=== PATIENT | female | born 1985 | race Caucasian/White ===

== ENCOUNTER → 2020-04-03 15:32 | Outpatient (BNVA) | payer SELFPAY | PROVIDERS: Visit Provider Nurse Practitioner Family | DX: Z20.828 Contact with and (suspected) exposure to other viral communicable diseases (principal); J06.9 Acute upper respiratory infection, unspecified; R43.0 Anosmia | CPT/HCPCS: 87635 ==

== ENCOUNTER 2020-12-04 06:24 | Emergency (ER) | payer SELFPAY ==
[2020-12-04 06:36] VITALS: BP 130/73; PULSE 97; RESP 16; TEMP 36.8; O2SAT 96; BMI 24.5
--- NOTE | 2020-12-04 06:48 | ED_ITS ---
HPI - Dental/Oral General: Chief complaint: Dental/Oral Stated complaint: Swollen mouth, Pain on L side of face near mouth Time Seen by Provider: 12/04/20 06:31 History of Present Illness: HPI Narrative: 35-year-old female presents emergency room complaining of swelling left side of her face chest poor dentition actually has an appointment upcoming for a dentist but swelling last couple days has gotten markedly worse towards uncomfortable for her to chew or swallow. She has noted that foods and beverages that extreme temperatures cause discomfort. She denies any fever sweats or chills MD Complaint: tooth pain Teeth map: 1. Onset (ago): day(s) Duration: constant Severity: moderate Relieving factors: nothing Exacerbating factors: chewing, cold, heat, drinking fluids and swallowing Context: history of dental caries Associated symptoms: Reports gum swelling; Denies ear or mastoid pain, fever(s), odynophagia, sore throat or tongue swelling Treatment prior to arrival: none Review of Systems Const: Denies: fever(s) ENMT: Denies: odynophagia or ear or mastoid pain Card: Denies: chest pain, edema, dyspnea on exertion or orthopnea Resp: Denies: dyspnea, productive cough or non-productive cough GI: Denies: abdominal pain, nausea, vomiting, hematemesis, coffee ground emesis, diarrhea, constipation, bloating, hematochezia or melena : Denies: flank pain, difficulty voiding, dysuria, urinary frequency or urinary urgency Skin/Breast: Denies: rash or pruritus All/Imm: Denies: tongue swelling [facility] [place] [facility] Female Reproductive History: Date of last menstrual period: 11/05/20 Physical Exam Const: COMMON NORMALS: no acute distress GENERAL APPEARANCE: cooperative and comfortable ORIENTATION/CONSCIOUSNESS: Yes awake, Yes oriented to person, Yes oriented to place and Yes oriented to time HENMT: COMMON NORMALS: normocephalic, atraumatic, hearing grossly normal bilaterally, external ears normal, EAC's normal, TM's normal bilaterally, Normal nasal mucous membranes and turbinates present and moist oral mucous membranes HEAD & SCALP: normocephalic and atraumatic NOSE: Normal nasal mucous membranes and turbinates present EXTERNAL EAR: Yes external ears normal EXTERNAL AUDITORY CANAL: EAC's normal TYMPANIC MEMBRANE: TM's normal bilaterally OTHER: Poor dentition with multiple dental caries. Swelling along the gumline at the first molar. No abscess amenable to incision and drainage Neck/C-Spine: COMMON NORMALS: no JVD Resp: COMMON NORMALS: normal respiratory effort, No retractions, No use of accessory muscles and clear to auscultation bilaterally AUSCULTATION: clear to auscultation bilaterally Cardio: COMMON NORMALS: no JVD, regular rate, regular rhythm and No murmurs present (Cardio) RATE: regular rate RHYTHM: regular rhythm Neuro: SENSORIUM/ORIENTATION: Yes oriented to person, Yes oriented to place and Yes oriented to time Skin: COMMON NORMALS: no rashes or lesions noted GENERAL SKIN EXAM: no rashes or lesions noted Course 2 Vital Signs: Vital signs: Vital Signs Temperature 99.3 F 12/04/20 07:16 Pulse Rate 87 12/04/20 07:16 Respiratory Rate 18 12/04/20 07:16 Blood Pressure 130/73 12/04/20 07:16 Pulse Oximetry 97 12/04/20 07:16 MDM - Dental/Oral MDM Narrative: Medical decision making narrative: Started on clindamycin 300 mg 4 times daily x7 days recommend follow-up with dentist as soon as able for definitive care. patient is not currently on methadone. Discharge Plan Discharge Patient Disposition: Home Clinical Impression: Dental abscess Condition: Stable Prescriptions: New clindamycin HCl 300 mg capsule 300 mg PO Q6H 7 Days Qty: 28 RF: 0 Discharge Orders: Discharge ED (Routine); Ordered 12/04/20 Ordered By: Jorge Luis Zuniga Referrals: Eulogio Lyles DO [Primary Care Provider] - Discharge Diet: Usual diet Discharge Activity: Resume usual activity Patient Instructions: Opioid Safety Activity Restrictions/Additional Instructions: Follow-up with a dentist as soon as you are able. Coding Level of Care Code ED Machine Coremaker for Suha Bagley
[2020-12-04 06:59] VITALS: BP 130/73; PULSE 87; RESP 18; TEMP 37.4; O2SAT 97
[2020-12-04 07:16] VITALS: BP 130/73; PULSE 87; RESP 18; TEMP 37.4; O2SAT 97
== END 2020-12-04 07:13 | disposition home or self-care (01) ==
PROVIDERS: Emergency Provider Family Medicine; PCP Family Medicine
DX: K04.7 Periapical abscess without sinus (principal)
CPT/HCPCS: 99281

== ENCOUNTER → 2022-09-11 10:00 | Outpatient (BNVA) | payer OTHER, SELFPAY | PROVIDERS: PCP Family Medicine; Visit Provider Nurse Practitioner Women's Health | DX: N92.6 Irregular menstruation, unspecified (principal); Z32.00 Encounter for pregnancy test, result unknown; Z32.01 Encounter for pregnancy test, result positive | CPT/HCPCS: 81025; 83036; 84443; 84702 ==

== ENCOUNTER → 2022-09-18 13:45 | Outpatient (BNVA) | payer OTHER, SELFPAY | PROVIDERS: PCP Family Medicine; Visit Provider Nurse Practitioner Women's Health | DX: Z34.91 Encounter for supervision of normal pregnancy, unspecified, first trimester (principal); Z3A.01 Less than 8 weeks gestation of pregnancy | CPT/HCPCS: 76817 ==

== ENCOUNTER 2022-09-26 09:27 | Emergency (ER) | payer OTHER, SELFPAY ==
[2022-09-26 09:43] VITALS: BP 142/86; PULSE 105; RESP 18; TEMP 37.1; O2SAT 97; BMI 25.9
[2022-09-26 10:12] VITALS: BP 132/72; PULSE 97; RESP 19; O2SAT 98
--- NOTE | 2022-09-26 10:22 | ED_ITS ---
Documented by User: Wanda Helton PA-C 09/26/22 14:58 HPI - General: Chief complaint: Vaginal Bleeding Stated complaint: 7 weeks , vaginal bleeding Time Seen by Provider: 09/26/22 09:47 Source: patient Mode of arrival: ambulatory Limitations: no limitations History of Present Illness: 37-year-old female presents to the ER today for vaginal bleeding that began this morning. Patient reports there was no blood in the toilet or in her underwear but when she wiped there was a large amount of dark-colored blood. Patient reports according to LMP and original ultrasound she is 7 weeks 2 days today. She had an ultrasound done about a week and a half ago and everything looked good. Patient reports she did see an WALL C[facility]ING INSTALLER but did not have any lab work done at that time. Patient reports she is Rh- and has had to have RhoGAM with other pregnancies. Patient denies any cramping. Denies any recent illness. Denies any pain at this time. Patient reports she is . Her last 2 have been normal pregnancies however her first 1 was a missed miscarriage. 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 Carbajal for endometriosis --- self reported but told spots were treated Family History Mother Cervical cancer Hyperlipidemia Hypertension Sister Cervical cancer Grandmother Hyperlipidemia Hypertension maternal Diabetes maternal Stroke maternal Other Lung disease Denies family history of Colon cancer Ovarian cancer Breast cancer Uterine cancer Thyroid disease Physical Exam Const: COMMON NORMALS: no acute distress, average body habitus, patient oriented x3 and well nourished HENMT: COMMON NORMALS: normocephalic, atraumatic, external ears normal, Normal external nose present and moist oral mucous membranes HEAD & SCALP: normocephalic and atraumatic NOSE: Normal external nose present EXTERNAL EAR: Yes external ears normal Neck/C-Spine: COMMON NORMALS: full ROM Resp: COMMON NORMALS: normal respiratory effort, No retractions and clear to auscultation bilaterally AUSCULTATION: clear to auscultation bilaterally Cardio: COMMON NORMALS: regular rate, regular rhythm and No murmurs present (Cardio) RATE: regular rate RHYTHM: regular rhythm GI: COMMON NORMALS: Normal to inspection, nondistended, normoactive bowel sounds present, Soft to palpation and non-tender PALPATION: Yes Soft to palpation Extremity: COMMON NORMALS: normal to inspection and full ROM Neuro: COMMON NORMALS: patient oriented x3 and moves all extremities Psych: COMMON NORMALS: mental status grossly normal, Normal thought process present and cooperative THOUGHT PROCESS: Normal thought process present Skin: COMMON NORMALS: no rashes or lesions noted and no wounds GENERAL SKIN EXAM: no rashes or lesions noted Course ED course: Patient presents to the ER with vaginal bleeding at 7 weeks 2 days . This dark-colored blood began this morning when she wiped. Patient has no pain at this time. Denies any cramping. Patient is G4, P2. We will get lab work before deciding on ultrasound. Patient had an ultrasound done a week and a half ago. We will also get a urine to rule out UTI, patient prefers to not be catheterized but will give us a clean-catch sample. Patient is Rh- so we will do RhoGAM in ER. Vital Signs: Vital signs: Vital Signs Temperature 99.3 F 09/26/22 14:32 Pulse Rate 81 09/26/22 14:41 Respiratory Rate 16 09/26/22 14:41 Blood Pressure 123/80 09/26/22 14:41 Pulse Oximetry 96 09/26/22 14:41 Oxygen Delivery Me thod Room Air 09/26/22 14:41 MDM - OB/Uterine Contractions Medical Decision Making White count slightly elevated but expected in . Vaginal bleeding is minimal. Beta did rise from last visit a couple of weeks ago. Patient has no pain at this time. All other lab work unremarkable. UA does not indicate any blood. We went ahead and did an ultrasound and fetus is measuring 7 weeks 6 days which is appropriate based on estimated due date patient was given. There was noted to be a small subchorionic hemorrhage which may be the cause of bleeding. Discussed return precautions with patient. Recommended pelvic rest and pushing fluids. Follow-up with WALL COVERING INSTALLER in 1 week. Patient verbalized understanding and was in agreement with the treatment plan. Lab Data 09/26/22 11:23 09/26/22 11:23 Radiology Impressions Obstetrics Ultrasound 09/26/22 13:05 IMPRESSION: 1. Single intrauterine gestation of 7 weeks 6 days with an EDC of 05/09/2023. 2. Small subchorionic hemorrhage along the inferior gestational sac. 3. Normal cardiac activity. Laboratory Results WBC 11.8 10^3/uL (4.0-10.0) H 09/26/22 11: RBC 4.66 10^6/uL (4.1-5.3) 09/26/22 11:23 Hgb 14.2 g/dL (11.5-15.3) 09/26/22 11:23 Hct 42.9 % (37.0-47.0) 09/26/22 11:23 MCV 92.1 fl (81-99) 09/26/22 11:23 MCH 30.5 pg (28.0-34.0) 09/26/22 11:23 MCHC 33.1 g/dL (30.0-36.0) 09/26/22 11:23 RDW 12.5 % (12.1-15.1) 09/26/22 11:23 Plt Count 271 10^3/cmm (130-400) 09/26/22 11:23 MPV 8.9 fL (7.4-10.4) 09/26/22 11:23 Neut % (Auto) 71.7 % 09/26/22 11:23 Lymph % (Auto) 18.4 % 09/26/22 11:23 Clinch % (Auto) 8.4 % 09/26/22 11:23 Eos % (Auto) 0.5 % 09/26/22 11:23 Baso % (Auto) 0.5 % 09/26/22 11:23 Neut # (Auto) 8.45 10^3/uL (1.8-7.7) H 09/26/22 11:23 Lymph # (Auto) 2.2 10^3/uL (0.8-4.8) 09/26/22 11:23 Clinch # (Auto) 1.0 10^3/uL (0.2-0.9) H 09/26/22 11:23 Eos # (Auto) 0.1 10^3/uL (0.0-0.8) 09/26/22 11:23 Baso # (Auto) 0.1 10^3/uL (0.0-0.1) 09/26/22 11:23 Nucleated RBC % (auto) 0 % 09/26/22 11:23 Nucleated RBCs # 0.0 /100WBC 09/26/22 11:23 Sodium 136 mmol/L (136-145) 09/26/22 11:23 Potassium 3.5 mmol/L (3.5-5.1) 09/26/22 11:23 Chloride 102 mmol/L (98-107) 09/26/22 11:23 Carbon Dioxide 20 mmol/L (22-29) L 09/26/22 11:23 Anion Gap 17.5 (5-19) 09/26/22 11:23 BUN 5 mg/dL (6-20) L 09/26/22 11:23 Creatinine 0.6 mg/dL (0.5-0.9) 09/26/22 11:23 GFR Calculation 113.1 mL/min (90-130) 09/26/22 11:23 Glucose 86 mg/dL (65-115) 09/26/22 11:23 Calculated Osmolality 279 mOsm/kg (285-295) L 09/26/22 11:23 Calcium 9.3 mg/dL (8.5-10.5) 09/26/22 11:23 Ser , Semi-Qnt 32513.00 mIU/mL 09/26/22 11:23 Urine Color Yellow (Yellow) 09/26/22 11:05 Urine Appearance Clear (CLEAR) 09/26/22 11:05 Urine pH 5 (5-7) 09/26/22 11:05 Ur Specific [place] 1.015 (1.005-1.030) 09/26/22 11:05 Urine Protein Neg (Negative) 09/26/22 11:05 Urine Glucose (UA) Norm (Normal) 09/26/22 11:05 Urine Ketones Negative (Negative) 09/26/22 11:05 Urine Blood Neg (Negative) 09/26/22 11:05 Urine Nitrate Negative (Negative) 09/26/22 11:05 Urine Bilirubin Neg (Negative) 09/26/22 11:05 Urine Urobilinogen Norm mg/dL (Negative) 09/26/22 11:05 Ur Leukocyte Esterase Negative (Negative) 09/26/22 11:05 Blood Type AB Negative 09/26/22 11:23 Rho(D) Type Negative 09/26/22 11:23 Antibody Screen Negative 09/26/22 11:23 Critical Care Time Critical Care Time: Critical Care Time: No Discharge Plan Discharge Patient Disposition: Home Clinical Impression: Threatened Subchorionic hemorrhage in first trimester Qualifiers: Fetus number: single or unspecified fetus Qualified Code(s): O41.8X10 - Other specified disorders of amniotic fluid and membranes, first trimester, not applicable or unspecified Condition: Stable Prescriptions: No Action methadone 40 mg tablet,soluble 120 mg PO DAILY prenat.vits,cheyenne,[id number] Tablet 1 tab PO DAILY Qty: 90 3RF Discharge Orders: Discharge ED (Routine); Ordered 09/26/22 Ordered By: Wanda Helton Referrals: Eulogio Lyles DO [Primary Care Provider] - Discharge Diet: Usual diet Discharge Activity: Increase activity as tolerated Patient Instructions: Opioid Safety, Pain Management Activity Restrictions/Additional Instructions: Push fluids. Follow-up with WALL COVERING INSTALLER in 1 week. Return to the ER with any worsening pain or increased bleeding. Progress recommended x1 week. 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 Carbajal for endometriosis --- self reported but told spots were treated Family History Mother Cervical cancer Hyperlipidemia Hypertension Sister Cervical cancer Grandmother Hyperlipidemia Hypertension maternal Diabetes maternal Stroke maternal Other Lung disease Denies family history of Colon cancer Ovarian cancer Breast cancer Uterine cancer Thyroid disease Course Vital Signs: Vital signs: Vital Signs Temperature 99.3 F 09/26/22 14:32 Pulse Rate 81 09/26/22 14:41 Respiratory Rate 16 09/26/22 14:41 Blood Pressure 123/80 09/26/22 14:41 Pulse Oximetry 96 09/26/22 14:41 Oxygen Delivery Me thod Room Air 09/26/22 14:41 MDM - OB/Uterine Contractions Medical Decision Making White count slightly elevated but expected in . Vaginal bleeding is minimal. Beta did rise from last visit a couple of weeks ago. Patient has no pain at this time. All other lab work unremarkable. UA does not indicate any blood. We went ahead and did an ultrasound and fetus is measuring 7 weeks 6 days which is appropriate based on estimated due date patient was given. There was noted to be a small subchorionic hemorrhage which may be the cause of bleeding. Discussed return precautions with patient. Recommended pelvic rest and pushing fluids. Follow-up with WALL COVERING INSTALLER in 1 week. Patient verbalized understanding and was in agreement with the treatment plan. Chart reviewed and patient discussed with midlevel. Agree with assessment and plan. Lab Data 09/26/22 11:23 09/26/22 11:23 Radiology Impressions Obstetrics Ultrasound 09/26/22 13:05 IMPRESSION: 1. Single intrauterine gestation of 7 weeks 6 days with an EDC of 05/09/2023. 2. Small subchorionic hemorrhage along the inferior gestational sac. 3. Normal cardiac activity. Laboratory Results WBC 11.8 10^3/uL (4.0-10.0) H 09/26/22 11:23 RBC 4.66 10^6/uL (4.1-5.3) 09/26/22 11:23 Hgb 14.2 g/dL (11.5-15.3) 09/26/22 11:23 Hct 42.9 % (37.0-47.0) 09/26/22 11:23 MCV 92.1 fl (81-99) 09/26/22 11:23 MCH 30.5 pg (28.0-34.0) 09/26/22 11:23 MCHC 33.1 g/dL (30.0-36.0) 09/26/22 11:23 RDW 12.5 % (12.1-15.1) 09/26/22 11:23 Plt Count 271 10^3/cmm (130-400) 09/26/22 11:23 MPV 8.9 fL (7.4-10.4) 09/26/22 11:23 Neut % (Auto) 71.7 % 09/26/22 11:23 Lymph % (Auto) 18.4 % 09/26/22 11:23 Clinch % (Auto) 8.4 % 09/26/22 11:23 Eos % (Auto) 0.5 % 09/26/22 11:23 Baso % (Auto) 0.5 % 09/26/22 11:23 Neut # (Auto) 8.45 10^3/uL (1.8-7.7) H 09/26/22 11:23 Lymph # (Auto) 2.2 10^3/uL (0.8-4.8) 09/26/22 11:23 Clinch # (Auto) 1.0 10^3/uL (0.2-0.9) H 09/26/22 11:23 Eos # (Auto) 0.1 10^3/uL (0.0-0.8) 09/26/22 11:23 Baso # (Auto) 0.1 10^3/uL (0.0-0.1) 09/26/22 11:23 Nucleated RBC % (auto) 0 % 09/26/22 11:23 Nucleated RBCs # 0.0 /100WBC 09/26/22 11:23 Sodium 136 mmol/L (136-145) 09/26/22 11:23 Potassium 3.5 mmol/L (3.5-5.1) 09/26/22 11:23 Chloride 102 mmol/L (98-107) 09/26/22 11:23 Carbon Dioxide 20 mmol/L (22-29) L 09/26/22 11:23 Anion Gap 17.5 (5-19) 09/26/22 11:23 BUN 5 mg/dL (6-20) L 09/26/22 11:23 Creatinine 0.6 mg/dL (0.5-0.9) 09/26/22 11:23 GFR Calculation 113.1 mL/min (90-130) 09/26/22 11:23 Glucose 86 mg/dL (65-115) 09/26/22 11:23 Calculated Osmolality 279 mOsm/kg (285-295) L 09/26/22 11:23 Calcium 9.3 mg/dL (8.5-10.5) 09/26/22 11:23 Ser , Semi-Qnt 93598.00 mIU/mL 09/26/22 11:23 Urine Color Yellow (Yellow) 09/26/22 11:05 Urine Appearance Clear (CLEAR) 09/26/22 11:05 Urine pH 5 (5-7) 09/26/22 11:05 Ur Specific [place] 1.015 (1.005-1.030) 09/26/22 11:05 Urine Protein Neg (Negative) 09/26/22 11:05 Urine Glucose (UA) Norm (Normal) 09/26/22 11:05 Urine Ketones Negative (Negative) 09/26/22 11:05 Urine Blood Neg (Negative) 09/26/22 11:05 Urine Nitrate Negative (Negative) 09/26/22 11:05 Urine Bilirubin Neg (Negative) 09/26/22 11:05 Urine Urobilinogen Norm mg/dL (Negative) 09/26/22 11:05 Ur Leukocyte Esterase Negative (Negative) 09/26/22 11:05 Blood Type AB Negative 09/26/22 11:23 Rho(D) Type Negative 09/26/22 11:23 Antibody Screen Negative 09/26/22 11:23 Discharge Plan Discharge Patient Disposition: Home Clinical Impression: Threatened Subchorionic hemorrhage in first trimester Qualifiers: Fetus number: single or unspecified fetus Qualified Code(s): O41.8X10 - Other specified disorders of amniotic fluid and membranes, first trimester, not applicable or unspecified Condition: Stable Prescriptions: No Action methadone 40 mg tablet,soluble 120 mg PO DAILY prenat.vits,cheyenne,[id number] Tablet 1 tab PO DAILY Qty: 90 3RF Discharge Orders: Discharge ED (Routine); Ordered 09/26/22 Ordered By: Wanda Helton Referrals: Eulogio Lyles DO [Primary Care Provider] - Discharge Diet: Usual diet Discharge Activity: Increase activity as tolerated Patient Instructions: Opioid Safety, Pain Management Activity Restrictions/Additional Instructions: Push fluids. Follow-up with WALL COVERING INSTALLER in 1 week. Return to the ER with any worsening pain or increased bleeding. Progress recommended x1 week. Coding Level of Care Code ED Cotton Converter for Suha Bagley
[2022-09-26 11:37] LABS: Basophils # 0.1 10^3/uL (0.0-0.1); Basophils % 0.5 %; Eosinophils # 0.1 10^3/uL (0.0-0.8); Eosinophils % 0.5 %; Hematocrit 42.9 % (37.0-47.0); Hemoglobin 14.2 g/dL (11.5-15.3); Lymphocytes # 2.2 10^3/uL (0.8-4.8); Lymphocytes % 18.4 %; Mean Corpuscular HGB Conc 33.1 g/dL (30.0-36.0); Mean Corpuscular Hemoglobin 30.5 pg (28.0-34.0); Mean Corpuscular Volume 92.1 fl (81-99); Mean Platelet Volume 8.9 fL (7.4-10.4); Monocytes % 8.4 %; Neutrophils # 8.45 10^3/uL (1.8-7.7); Neutrophils % 71.7 %; Nucleated Red Blood Cells % 0 %; Platelet Count 271 10^3/cmm (130-400); Red Blood Count 4.66 10^6/uL (4.1-5.3); Red Cell Distribution Width 12.5 % (12.1-15.1); White Blood Count 11.8 10^3/uL (4.0-10.0)
[2022-09-26 12:15] LABS: Add Urine Microscopic? NO; Charge for UA Resulting for Rev
[2022-09-26 12:19] LABS: Bilirubin Urine Neg (Negative); Blood Urine Neg (Negative); Glucose Urine UA Norm (Normal); Ketones Urine Negative (Negative); Leukocyte Esterase Urine Negative (Negative); Nitrate Urine Negative (Negative); Protein Urine Neg (Negative); Specific Gravity, Urine 1.015 (1.005-1.030); Urine Appearance Clear (CLEAR); Urine Color Yellow (Yellow); Urobilinogen Urine Norm (Negative); pH Urine 5 (5-7)
[2022-09-26 12:33] LABS: Anion Gap 17.5 (5-19); Blood Urea Nitrogen 5 mg/dL (6-20); Calcium 9.3 mg/dL (8.5-10.5); Carbon Dioxide 20 mmol/L (22-29); Chloride 102 mmol/L (98-107); Glomerular Filtration Rate 113.1 mL/min (90-130); Glucose 86 mg/dL (65-115); Osmolality Calculated 279 mOsm/kg (285-295); Potassium 3.5 mmol/L (3.5-5.1); Sodium 136 mmol/L (136-145)
[2022-09-26 12:44] VITALS: BP 110/63; PULSE 72; RESP 18; O2SAT 98
--- NOTE | 2022-09-26 13:05 | US_ITS ---
WS: [id number] EARLY OBSTETRICAL ULTRASOUND (<14 WEEKS). HISTORY: vaginal bleeding 7w 2d COMPARISON: 09/18/2022 Single intrauterine gestational sac is identified. Cardiac activity at 144 BPM. [place]-rump length vanna sures 1.5 cm which corresponds to a gestation of 7w6d. Normal-appearing yolk sac and amnion demonstra elijah. Small subchorionic hemorrhage. Mildly hypoechoic area along the inferior gestational sac measur es 8 x 9 x 10 mm. Suspicious for subchorionic hemorrhage. No free fluid. Corpus luteal cyst LEFT ovary. US/US OB <=14 wk fetus w transvag IMPRESSION: 1. Single intrauterine gestation of 7 weeks 6 days with an EDC of 05/09/2023. 2. Small subchorionic hemorrhage along the inferior gestational sac. 3. Normal cardiac activity.
[2022-09-26 14:32] VITALS: PULSE 81; RESP 16; TEMP 37.4; O2SAT 97
[2022-09-26 14:41] VITALS: BP 123/80; PULSE 81; RESP 16; O2SAT 96
== END 2022-09-26 15:06 | disposition home or self-care (01) ==
PROVIDERS: Emergency Provider Physician Assistant; PCP Family Medicine
DX: O20.0 Threatened abortion (principal); O41.8X10 Other specified disorders of amniotic fluid and membranes, first trimester, not applicable or unspecified; Z3A.01 Less than 8 weeks gestation of pregnancy
CPT/HCPCS: 36415; 76801; 76817; 80048; 81003; 84702; 85025; 86850; 86900; 90384; 99284

== ENCOUNTER → 2022-10-16 09:00 | Outpatient (BNVA) | payer OTHER, SELFPAY | PROVIDERS: PCP Family Medicine; Visit Provider Obstetrics & Gynecology | DX: O09.899 Supervision of other high risk pregnancies, unspecified trimester (principal); Z3A.00 Weeks of gestation of pregnancy not specified | CPT/HCPCS: 80307; 84315; 85027; 86592; 86762; 86803; 87086; 87340; 87806 ==

== ENCOUNTER → 2022-12-17 12:57 | Outpatient (BNVA) | payer OTHER, SELFPAY | PROVIDERS: PCP Family Medicine; Visit Provider Obstetrics & Gynecology | DX: O09.899 Supervision of other high risk pregnancies, unspecified trimester (principal); Z3A.00 Weeks of gestation of pregnancy not specified | CPT/HCPCS: 84315; 87086 ==

== ENCOUNTER → 2022-12-29 09:09 | Outpatient (BNVA) | payer OTHER, SELFPAY | PROVIDERS: PCP Family Medicine; Visit Provider Obstetrics & Gynecology | DX: Z34.90 Encounter for supervision of normal pregnancy, unspecified, unspecified trimester (principal) | CPT/HCPCS: 76805 ==

== ENCOUNTER 2023-01-21 08:13 | Emergency (ER) | payer OTHER, SELFPAY ==
[2023-01-21 08:14] VITALS: BP 133/95; PULSE 94; RESP 16; TEMP 36.6; O2SAT 97
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
[2023-01-21 08:24] VITALS: BP 133/95; PULSE 97; RESP 18; O2SAT 97
[2023-01-21 08:27] VITALS: PULSE 100; RESP 15; O2SAT 98
== END 2023-01-21 08:30 | disposition home or self-care (01) ==
PROVIDERS: Emergency Provider Emergency Medicine; PCP Family Medicine
DX: O26.892 Other specified pregnancy related conditions, second trimester (principal); Z3A.24 24 weeks gestation of pregnancy; R10.9 Unspecified abdominal pain; V89.2XXA Person injured in unspecified motor-vehicle accident, traffic, initial encounter
CPT/HCPCS: 99282

== ENCOUNTER 2023-01-21 08:40 | Outpatient (CLI) | payer OTHER, SELFPAY ==
[2023-01-21] VITALS (20 sets, daily range): BP systolic 98–136; BP diastolic 56–80; PULSE 70–176; RESP 17; TEMP 35.9; BMI 28.1
[2023-01-21 09:41] LABS: Basophils # 0.1 10^3/uL (0.0-0.1); Basophils % 0.5 %; Eosinophils # 0.1 10^3/uL (0.0-0.8); Eosinophils % 0.8 %; Lymphocytes # 2.6 10^3/uL (0.8-4.8); Lymphocytes % 24.4 %; Mean Corpuscular HGB Conc 33.6 g/dL (30-55); Mean Corpuscular Hemoglobin 30.6 pg (27-33); Mean Corpuscular Volume 90.9 fl (85-98); Mean Platelet Volume 9.9 fL (7.4-10.4); Monocytes % 9.1 %; Neutrophils # 6.64 10^3/uL (1.8-7.7); Neutrophils % 62.9 %; Nucleated Red Blood Cells % 0 %; Platelet Count 253 10^3/cmm (157-399); Red Blood Count 3.96 10^6/uL (3.85-5.65); Red Cell Distribution Width 12.4 % (12.1-15.1); White Blood Count 10.54 10^3/uL (3.29-11.43)
[2023-01-21 10:07] LABS: Urine Appearance Hazy (CLEAR); Urine Color Dark Yellow (Yellow); pH Urine 5 (5-7)
[2023-01-21 10:08] LABS: Bilirubin Urine Neg (Negative); Blood Urine Neg (Negative); Glucose Urine UA Norm (Normal); Ketones Urine Negative (Negative); Leukocyte Esterase Urine Negative (Negative); Nitrate Urine Negative (Negative); Protein Urine Neg (Negative); Specific Gravity, Urine 1.025 (1.005-1.030); Urobilinogen Urine Norm (Negative)
[2023-01-21 10:12] LABS: Amphetamines Screen Urine Negative (Negative); Barbiturates Screen Urine Negative (Negative); Benzodiazepines Screen Urine Negative (Negative); Cocaine Screen Urine Negative (Negative); Opiate Screen Urine Negative (Negative); PCP Screen Urine Negative (Negative); THC Screen Urine Negative (Negative)
[2023-01-21 10:39] LABS: Add Urine Culture? No; Bacteria Urine TRACE /hpf; Mucus Urine TRACE /hpf; RBC Urine 0-4 /hpf (0-2); WBC Urine 0-4 /hpf (0-5)
--- NOTE | 2023-01-21 11:37 | PC.NURSE ---
Rhogam injection given IM in right ventrogluteal. Pt tolerated well
== END 2023-01-21 12:40 | disposition home or self-care (01) ==
LOC: OPOB 08:40 → OBGYN 08:41
PROVIDERS: PCP Family Medicine; Visit Provider Obstetrics & Gynecology
DX: O26.899 Other specified pregnancy related conditions, unspecified trimester (principal); Z3A.00 Weeks of gestation of pregnancy not specified; V89.2XXA Person injured in unspecified motor-vehicle accident, traffic, initial encounter
CPT/HCPCS: 36415; 36430; 59025; 80306; 81001; 85025; 85460; 86850; 86900; 90384; 99211

== ENCOUNTER → 2023-01-26 08:01 | Outpatient (BNVA) | payer OTHER, SELFPAY | PROVIDERS: PCP Family Medicine; Visit Provider Obstetrics & Gynecology | DX: Z36.87 Encounter for antenatal screening for uncertain dates (principal) | CPT/HCPCS: 76816 ==

== ENCOUNTER → 2023-02-18 09:42 | Outpatient (BNVA) | payer OTHER, SELFPAY | PROVIDERS: PCP Family Medicine; Visit Provider Obstetrics & Gynecology | DX: O09.899 Supervision of other high risk pregnancies, unspecified trimester (principal); Z3A.28 28 weeks gestation of pregnancy | CPT/HCPCS: 82950; 84315 ==

== ENCOUNTER 2023-02-26 07:17 | Outpatient (CLI) | payer OTHER, SELFPAY ==
[2023-02-26] VITALS (14 sets, daily range): BP systolic 102–139; BP diastolic 53–71; PULSE 67–88; RESP 17; TEMP 36.3; BMI 29.6
--- NOTE | 2023-02-26 07:48 | US_ITS ---
WS: [id number] ULTRASOUND OB FOCUSED HISTORY: cramping COMPARISON: 01/26/2023 Single intrauterine gestation is identified in vertex position. The cervix is closed measuring 3.8 cm . heart rate at 129 BPM. Placenta is anterior and grade 1. The appearance of the placenta is very similar to the prior examina tion from 01/26/2023. No abruption or previa. Normal aging. Amniotic fluid index is 11.2 cm. IMPRESSION: 1. Normal anterior placenta. No abruption or previa. 2. Normal amniotic fluid. 3. Normal MACARENA.
== END 2023-02-26 10:58 | disposition home or self-care (01) ==
LOC: OPOB 07:18 → OBGYN 07:18
PROVIDERS: PCP Family Medicine; Visit Provider Obstetrics & Gynecology
DX: O26.899 Other specified pregnancy related conditions, unspecified trimester (principal); Z3A.00 Weeks of gestation of pregnancy not specified; R10.9 Unspecified abdominal pain
CPT/HCPCS: 59025; 76815; 99211

== ENCOUNTER → 2023-03-04 10:15 | Outpatient (BNVA) | payer OTHER, SELFPAY | PROVIDERS: PCP Family Medicine; Visit Provider Obstetrics & Gynecology | DX: O09.899 Supervision of other high risk pregnancies, unspecified trimester (principal) | CPT/HCPCS: 84315; 85025 ==

== ENCOUNTER → 2023-04-01 09:33 | Outpatient (BNVA) | payer OTHER, SELFPAY | PROVIDERS: PCP Family Medicine; Visit Provider Nurse Practitioner Women's Health | DX: O09.899 Supervision of other high risk pregnancies, unspecified trimester (principal); F11.20 Opioid dependence, uncomplicated; Z3A.34 34 weeks gestation of pregnancy | CPT/HCPCS: 84315; 87086 ==

== ENCOUNTER → 2023-04-16 08:01 | Outpatient (BNVA) | payer OTHER, SELFPAY | PROVIDERS: PCP Family Medicine; Visit Provider Nurse Practitioner Women's Health | DX: O09.899 Supervision of other high risk pregnancies, unspecified trimester (principal); Z3A.36 36 weeks gestation of pregnancy | CPT/HCPCS: 84315; 87081; 87491; 87591 ==

== ENCOUNTER 2023-04-20 07:41 | Outpatient (CLI) | payer OTHER, SELFPAY ==
[2023-04-20 08:00] VITALS: BMI 30.5
[2023-04-20 08:04] VITALS: BP 125/72; PULSE 91
[2023-04-20 08:13] VITALS: RESP 15; TEMP 36.7
--- NOTE | 2023-04-20 09:00 | PM.OBTRLD ---
OB L&D Triage Visit Information: Date of evaluation: 04/20/23 Comments/Additional reason(s) for visit: 37-year-old at 37 weeks gestation with complaints of contractions onset early this a.m. She denies leakage of fluid or vaginal bleeding. Review of active labor in early labor with patient. Her cervix was checked last week at clinic and noted to be 3 to 4 cm. This morning her cervix is relatively unchanged at 3 cm / 75%/-2 vertex. Discussed with patient discharge to home and for her to return if contraction intensity increases, leakage of fluid or vaginal bleeding. Patient understands Evaluation: Baseline heart rate: 140 Variability: Moderate (11-25) monitor accelerations: Present 15x15 monitor decelerations: None Cervical dilation (cm): 3 Cervical effacement (%): 75 station: -2 Laboratory results: Laboratory Tests 04/20/23 08:30 Amorphous Sediment Not Reportable Vital signs: Vital Signs - 24 hr 04/20/23 08:04 Pulse Rate 91 Blood Pressure 125/72 Care SHIRA Calculator Estimated Delivery Date Method Current WG Current Estimate 05/12/23 Ultrasound #1 36w 6d Other Estimates 04/27/23 LMP (Certain) 39w 0d Expected Delivery Route/Plan Final Diagnosis Final Diagnosis (1) 37 weeks gestation of : Plan: Observation on EFM. Discharge to home, patient to return to labor and delivery if contraction intensity increases, leakage of fluid or vaginal bleeding. Status: Acute Code(s): Z3A.37 - 37 weeks gestation of (2) Rh negative status during : Status: Acute Qualifiers: Trimester: third trimester Qualified Code(s): O26.893 - Other specified related conditions, third trimester; Z67.91 - Unspecified blood type, Rh negative Code(s): O26.899 - Other specified related conditions, unspecified trimester; Z67.91 - Unspecified blood type, Rh negative (3) Consultation for female sterilization: Status: Acute Code(s): Z30.09 - Encounter for other general counseling and advice on contraception (4) Subchorionic hemorrhage in first trimester: Status: Acute Code(s): O41.8X10 - Other specified disorders of amniotic fluid and membranes, first trimester, not applicable or unspecified; O46.8X1 - Other antepartum hemorrhage, first trimester (5) Supervision of other high-risk : Status: Acute Code(s): O09.899 - Supervision of other high risk pregnancies, unspecified trimester (6) Irregular menses: Status: Acute Code(s): N92.6 - Irregular menstruation, unspecified (7) Opiate addiction: Status: Acute Qualifiers: Substance use status: uncomplicated Qualified Code(s): F11.20 - Opioid dependence, uncomplicated Code(s): F11.20 - Opioid dependence, uncomplicated (8) Panic attack due to post traumatic stress disorder (PTSD): Status: Acute Code(s): F41.0 - Panic disorder [episodic paroxysmal anxiety]; F43.10 - Post-traumatic stress disorder, unspecified (9) Anxiety with depression: Status: Acute Code(s): F41.8 - Other specified anxiety disorders (10) PTSD (post-traumatic stress disorder): Status: Acute Code(s): F43.10 - Post-traumatic stress disorder, unspecified Coding Level of Care Code Acute Code for Chg Fwd Diagnoses 37 weeks gestation of Z3A.37 Rh negative status during in third trimester O26.893; Z67.91 Trimester: third trimester Consultation for female sterilization Z30.09 Subchorionic hemorrhage in first trimester O41.8X10; O46.8X1 Supervision of other high-risk O09.899 Irregular menses N92.6 Uncomplicated opioid dependence F11.20 Substance use status: uncomplicated Panic attack due to post traumatic stress disorder (PTSD) F41.0; F43.10 Anxiety with depression F41.8 PTSD (post-traumatic stress disorder) F43.10
[2023-04-20 09:05] LABS: Amphetamines Screen Urine Negative (Negative); Barbiturates Screen Urine Negative (Negative); Benzodiazepines Screen Urine Negative (Negative); Cocaine Screen Urine Negative (Negative); Opiate Screen Urine Negative (Negative); PCP Screen Urine Negative (Negative); THC Screen Urine Negative (Negative)
[2023-04-20 09:10] LABS: Bacteria Urine 1+ /hpf; Bilirubin Urine Neg (Negative); Blood Urine Neg (Negative); Glucose Urine UA Norm (Normal); Ketones Urine Negative (Negative); Leukocyte Esterase Urine 2+ (Negative); Nitrate Urine Negative (Negative); Protein Urine Neg (Negative); RBC Urine 0-4 /hpf (0-2); Specific Gravity, Urine 1.005 (1.005-1.030); Squamous Epithelial Cell Urine 0-4 /hpf (0-5); Urine Appearance Clear (CLEAR); Urine Color Straw (Yellow); Urobilinogen Urine Norm (Negative); WBC Urine 0-4 /hpf (0-5); pH Urine 7 (5-7)
== END 2023-04-20 09:10 | disposition home or self-care (01) ==
LOC: OPOB 07:55 → OBGYN 07:56
PROVIDERS: PCP Family Medicine; Visit Provider Obstetrics & Gynecology
DX: O26.893 Other specified pregnancy related conditions, third trimester (principal); Z3A.37 37 weeks gestation of pregnancy; Z67.91 Unspecified blood type, Rh negative; Z30.09 Encounter for other general counseling and advice on contraception; F11.20 Opioid dependence, uncomplicated; F41.0 Panic disorder [episodic paroxysmal anxiety]; F43.10 Post-traumatic stress disorder, unspecified; F41.8 Other specified anxiety disorders
CPT/HCPCS: 59025; 80306; 81001; 99211

== ENCOUNTER 2023-04-29 09:42 | Outpatient (CLI) | payer OTHER, SELFPAY ==
[2023-04-29 09:42] VITALS: BP 130/73; PULSE 98; BMI 30.5
[2023-04-29 10:08] VITALS: BP 121/65; PULSE 92
[2023-04-29 10:23] VITALS: BP 119/64; PULSE 87
[2023-04-29 10:30] VITALS: BP 119/64; PULSE 87; RESP 16; TEMP 36.7
== END 2023-04-29 10:35 | disposition home or self-care (01) ==
LOC: OPOB 09:44 → OBGYN 09:54
PROVIDERS: PCP Family Medicine; Visit Provider Obstetrics & Gynecology
DX: O16.9 Unspecified maternal hypertension, unspecified trimester (principal); Z3A.00 Weeks of gestation of pregnancy not specified
CPT/HCPCS: 59025; 84315; 99211

== ENCOUNTER 2023-05-03 14:10 | Inpatient (IN) | payer OTHER, SELFPAY ==
[2023-05-03] VITALS (75 sets, daily range): BP systolic 101–187; BP diastolic 53–84; PULSE 67–127; RESP 15–16; TEMP 36.4–37.1; O2SAT 91–100; BMI 30.5
[2023-05-03] MEDS: lactated ringers 1,000 ML 999 ML IV (14:04)
[2023-05-03 14:14] LABS: Basophils # 0.1 10^3/uL (0.0-0.1); Basophils % 0.5 %; Eosinophils # 0.1 10^3/uL (0.0-0.8); Eosinophils % 1.2 %; Hematocrit 30.8 % (36-47); Lymphocytes # 1.7 10^3/uL (0.8-4.8); Lymphocytes % 15.9 %; Mean Corpuscular HGB Conc 30.2 g/dL (30-55); Mean Corpuscular Hemoglobin 22.7 pg (27-33); Mean Corpuscular Volume 75.3 fl (85-98); Mean Platelet Volume 9.2 fL (7.4-10.4); Monocytes # 0.9 10^3/uL (0.2-0.9); Monocytes % 8.1 %; Neutrophils # 7.83 10^3/uL (1.8-7.7); Neutrophils % 73.4 %; Nucleated Red Blood Cells % 0.3 %; Platelet Count 241 10^3/cmm (157-399); Red Blood Count 4.09 10^6/uL (3.85-5.65); Red Cell Distribution Width 16.8 % (12.1-15.1); White Blood Count 10.68 10^3/uL (3.29-11.43)
--- NOTE | 2023-05-03 14:50 | ANES.PREANE2 ---
Pre-Anesthetic Assessment Height/Weight: Height 1.57 m Pulse BP 99 145/68 05/03/23 14:46 05/03/23 14:46 Epidural Familial anesthetic complications: None Was Beta Terry taken within 24 hours: N/A Was Clonidine taken within 24 hours: N/A Last Intake: 12:00 Social No alcohol and No tobacco (Quit 2 months ago) Exam alert, oriented x 3, clear to auscultation bilaterally and regular rate & rhythm Airway Submandibular: within normal limits Cervical ROM: within normal limits Mallampati: Class III Dentition: chipped Comments: Comments: Several missing, very poor dentition History/ROS No significant history except as noted and No significant complaints Pulmonary None reported CV/HEM None reported None reported Hepatic None reported GI Gastroesophageal Reflux Disease Metabolic None reported Musc/skel None reported Neuropsych Anxiety and Depression Panic attacks Anesthetic Plan ASA status: 3 Anesthesia: Anesthesia Evaluation, General and Regional (specify below) (Epidural) Medications/Allergies Home Medications Medication Instructions Recorded Confirmed Last Taken Type methadone 40 mg soluble tablet 120 mg PO DAILY 09/11/22 04/29/23 Unknown History prenat.vits,cheyenne,rxv-cygl-fvxpj 1 tab PO DAILY #90 tabs 09/11/22 04/29/23 Unknown Rx ondansetron HCl 4 mg tablet 4 mg PO Q6H PRN nausea and 10/16/22 04/29/23 Unknown Rx vomiting #30 tabs nitrofurantoin 100 mg PO BID #14 caps 12/17/22 04/29/23 Unknown Rx monohydrate/macrocrystals 100 mg capsule (Macrobid) famotidine 40 mg tablet (Pepcid) 40 mg PO BID #60 tabs 02/18/23 04/29/23 Unknown Rx sljzjusynktav-KW-haqqvjpkxwn 5 10 ml PO Q4H PRN cold symptoms 03/04/23 04/29/23 Unknown Rx mg-10 mg-100 mg/5 mL oral liquid #237 mL (Adult Robitussin Peak Cold M-S) azithromycin 250 mg tablet See Rx Instructions PO .COMPLEX #6 04/21/23 04/29/23 Unknown Rx tabs clotrimazole 1 % vaginal cream 1 appful vaginal .at bedtime 7 04/21/23 04/29/23 Unknown Rx days #45 grams Allergies Allergy/AdvReac Type Severity Reaction Status Date / Time cefaclor [From [facility]] Allergy unknown Verified 04/29/23 08:53 Penicillins Allergy unknown Verified 04/29/23 08:53 Sulfa (Sulfonamide Allergy unknown Verified 04/29/23 08:53 Antibiotics) prochlorperazine AdvReac Intermediate ADR-Anxiety Verified 04/29/23 08:53 [From Compazine] Current Medications Generic Name Dose Route Start Last Admin Trade Name Freq PRN Reason Stop Dose Admin Lactated Ringer's 1,000 mls @ 999 mls/hr 05/03/23 13:48 05/03/23 14:04 Lactated Ringers IV 999 mls/hr .Q1H1M PRN Administration BLEEDING PFSH Anesthesia Medical History Panic attack due to post traumatic stress disorder (PTSD) Anxiety with depression PTSD (post-traumatic stress disorder) History of gestational diabetes (~2010) diet controlled No pertinent past medical history neghx: htn,dm,thyroid,dvt/pe PCP: None Surgical History H/O laparoscopy (~2006) Performed by Dr. Carbajal for endometriosis --- self reported but told spots were treated H/O dilation and curettage (~2008) missed AB Family History Mother Cervical cancer Hyperlipidemia Hypertension Sister Cervical cancer Grandmother Hyperlipidemia Hypertension maternal Diabetes maternal Stroke maternal Other Lung disease Denies family history of Colon cancer Ovarian cancer Breast cancer Uterine cancer Thyroid disease Data Anesthesia 05/04/23 06:37 Short CBC 05/03/23 Range/Units 13:40 WBC 10.68 (3.29-11.43) 10^3/uL Hgb 9.30 L (11.27-16.99) g/dL Hct 30.8 L (36-47) % MCV 75.3 L (85-98) fl Plt Count 241 (157-399) 10^3/cmm Neut % (Auto) 73.4 % Neut # (Auto) 7.83 H (1.8-7.7) 10^3/uL Blood Bank 05/03/23 13:40 Blood Type AB Negative Rho(D) Type Negative Cardiac Studies: No Data to Display
[2023-05-03] MEDS: dextrose 5%-lactated ringers 1,000 ML 125 ML IV ×2 (15:06→17:15)
[2023-05-03] MEDS: ROPivacaine syringe 100 MG/50 ML SYRINGE 10 MG EPIDURAL ×2 (15:08→17:18)
--- NOTE | 2023-05-03 15:43 | ANES.PROC ---
Documented by User: Avni Troy, FINISHED STOCK INSPECTOR 05/03/23 18:31 Anesthesia Procedures Procedure/Date: 05/03/23 Epidural: Time Out Performed: Yes Consents Signed: Procedure Consent and NPO Consent Consent: requested by attending/covering physician, from patient, risks and benefits reviewed and patient agrees to proceed Lumbar Level: L2-L3 Epidural position: sitting Epidural procedure: sterile prep of area (betadine), 1% lidocaine to numb the area (3 mLs), neg for paresthesia, test dose given, 1.5% xylocaine 1:200k epi (3 mLs/ 2 mLs), 0.2% Ropivacaine bolus ml (5 mLs), placed PCEA, no systemic response, sterile dressing applied, L.U.D. no apparent complications and 0.2% Ropiavacaine @ mls/hr (13) Additional Comments: Attempt x2. Placed first epidural catheter and blood was seen coming back through catheter. Moved up one space and placed epidural. WINTER at 7cm and catheter placed to 12cm. 20mcg precedex given via epidural. Other Information: Called at 1800 for patients complaints of pain. Assessed patient and administered 100mcg fentanyl and 5ml 0.25% bupivacaine via slow epidural push after aspiration. Patient delivered shortly after administration. Documented by User: Pito Kohli 05/04/23 10:36 Anesthesia Procedures Procedure/Date: 05/04/23
--- NOTE | 2023-05-03 16:27 | PM.OBGYHP ---
Providers/Chief Complaint Admitting Physician: Elizabeth Frey DO Primary COOK HOUSE SUPERVISOR: Dr. Jose Alfredo Acosta Primary Care Provider: Eulogio Lyles DO Chief Complaint: labor HPI COOK HOUSE SUPERVISOR History of Present Illness Maira Mena is a 37 year old female G3, P2 at 39.1 weeks gestation admitted to labor and delivery with complaints of onset of contractions at 12:50 PM with leakage of fluid. Patient missed good movement and moderate contractions. Patient denies complications during this . care has been provided by Dr. Jose Alfredo Acosta. record has been reviewed with significant past medical history of panic attacks and opiate dependency. Patient currently takes methadone 120 mg daily. Upon admission patient cervix was noted to be 4 cm / 90%/-2 vertex presentation with gross clear fluid noted. EFM?category 1. Upon my examination patient cervix was 8 cm / 90%/-1 vertex presentation with decreased variability followed by audible change in baseline. Patient had just received epidural for pain management. Changing position to left lateral recumbency with return of HST's to previous baseline with moderate variability. Patient was aure every 5 to 6 minutes. Reviewed with patient once good recovery have occurred we will recheck cervix and if unchanged will consider augmentation. Patient understands and agrees. Risk of possible delivery if nonreassuring monitoring indicates need for expedient delivery. Present Details : 3 Para: 2 Labs Rubella: Immune RPR: Negative GBS: Negative Review of Systems Const: Reports: fatigue; Denies: fever(s) or change in appetite Eyes: Denies: change in vision, blurry vision, blind spots, floaters or seeing flashes Card: Denies: palpitations, irregular heart rhythm, edema, lightheadedness, syncope or pre-syncope Resp: Denies: dyspnea or pain on inspiration GI: Denies: abdominal pain, nausea, vomiting, heartburn or GI cramping : Reports: other (contractions (intermittent)); Denies: difficulty voiding, dysuria, genital pruritis, vaginal odor, vaginal bleeding or vaginal discharge Musc: Denies: back pain, limited range of motion or muscle cramps Skin/Breast: Denies: rash, pruritus, breast tenderness or nipple discharge Neuro: Denies: headache(s) or numbness in extremities Psych: Denies: anxiety, depression, mood swings or panic attacks Endo: Denies: polyuria, tired all the time or hot flashes [place]/Lymph: Denies: easy bruising or petechiae Medications/Allergies Home Medications Medication Instructions Recorded Confirmed Last Taken Type methadone 40 mg soluble tablet 120 mg PO DAILY 09/11/22 04/29/23 Unknown History prenat.vits,cheyenne,fuu-hncc-ckdnl 1 tab PO DAILY #90 tabs 09/11/22 04/29/23 Unknown Rx ondansetron HCl 4 mg tablet 4 mg PO Q6H PRN nausea and 10/16/22 04/29/23 Unknown Rx vomiting #30 tabs nitrofurantoin 100 mg PO BID #14 caps 12/17/22 04/29/23 Unknown Rx monohydrate/macrocrystals 100 mg capsule (Macrobid) famotidine 40 mg tablet (Pepcid) 40 mg PO BID #60 tabs 02/18/23 04/29/23 Unknown Rx pkaljtfhimgvt-UY-cilhwapqexb 5 10 ml PO Q4H PRN cold symptoms 03/04/23 04/29/23 Unknown Rx mg-10 mg-100 mg/5 mL oral liquid #237 mL (Adult Robitussin Peak Cold M-S) azithromycin 250 mg tablet See Rx Instructions PO .COMPLEX #6 04/21/23 04/29/23 Unknown Rx tabs clotrimazole 1 % vaginal cream 1 appful vaginal .at bedtime 7 04/21/23 04/29/23 Unknown Rx days #45 grams Allergies Allergy/AdvReac Type Severity Reaction Status Date / Time cefaclor [From Ceclor] Allergy unknown Verified 04/29/23 08:53 Penicillins Allergy unknown Verified 04/29/23 08:53 Sulfa (Sulfonamide Allergy unknown Verified 04/29/23 08:53 Antibiotics) prochlorperazine AdvReac Intermediate ADR-Anxiety Verified 04/29/23 08:53 [From Compazine] PFSH COOK HOUSE SUPERVISOR PFSH: Medical History Panic attack due to post traumatic stress disorder (PTSD) Anxiety with depression PTSD (post-traumatic stress disorder) History of gestational diabetes (~2010) diet controlled No pertinent past medical history neghx: htn,dm,thyroid,dvt/pe PCP: None Surgical History H/O laparoscopy (~2006) Performed by Dr. Carbajal for endometriosis --- self reported but told spots were treated H/O dilation and curettage (~2008) missed AB Family History Mother Cervical cancer Hyperlipidemia Hypertension Sister Cervical cancer Grandmother Hyperlipidemia Hypertension maternal Diabetes maternal Stroke maternal Other Lung disease Denies family history of Colon cancer Ovarian cancer Breast cancer Uterine cancer Thyroid disease Sexual History: Are you sexually active?: Yes How old were you when you first had sex?: 19 More than 5 How long have you been with your current partner?: Since 2007 What is your sexual preference?: Heterosexual Hx Sexually Transmitted Diseases: No History History History 4 Term 2 0 Miscarriages/Ectopic 1 Living Children 2 Care SHIRA Calculator Estimated Delivery Date Method Current WG Current Estimate 05/12/23 Ultrasound #1 38w 5d Other Estimates 04/27/23 LMP (Certain) 40w 6d Expected Delivery Route/Plan Vitals/I&O/Wt Last Vital Signs Pulse 102 H 05/03/23 16:25 Resp 15 05/03/23 13:49 BP 148/71 05/03/23 16:25 Pulse Ox 100 05/03/23 15:24 Weight last 48 hrs Weight 75.75 kg Physical Exam Narrative: 37-year-old female Const: COMMON NORMALS: no acute distress, patient oriented x3, no limitations, healthy appearing and well nourished HENMT: COMMON NORMALS: normocephalic OTHER: Poor dentition. Resp: COMMON NORMALS: clear to auscultation bilaterally Cardio: COMMON NORMALS: regular rate and regular rhythm Back/Pelvis: OTHER: Pelvic exam as above Extremity: COMMON NORMALS: normal to inspection, no clubbing, cyanosis or edema and no calf tenderness Neuro: COMMON NORMALS: patient oriented x3, CN's II-XII intact bilaterally, moves all extremities and deep tendon reflexes 2+ bilaterally Data 05/03/23 13:40 Results Labs OB ([facility]): Obstetrics US 02/26/23 Blood Type AB Negative 05/03/23 Antibody Screen Negative 05/03/23 Hct 30.8 % (36-47) L 05/03/23 Hgb 9.30 g/dL (11.27-16.99) L 05/03/23 Rho(D) Type Negative 05/03/23 Plt Count 241 10^3/cmm (157-399) 05/03/23 Hep Bs Antigen Non-reactive (Nonreactive) 10/16/22 Hepatitis C Antibody Non-reactive (Nonreactive) 10/16/22 Rubella IgG Antibody 32.0 IU/mL (0.0-10.0) H 10/16/22 RPR Nonreactive (Nonreactive) 10/16/22 HIV 1&2 Ab & HIV 1 Ag Non-reactive (Non-Reactiv) 10/16/22 TSH 1.37 uIU/mL (0.27-4.20) 09/11/22 C.trachomatis RNA (TMA) Not detected (NOT DETECTED) 04/16/23 N.gonorrhoeae RNA (TMA) Not detected (NOT DETECTED) 04/16/23 Chlamydia/GC Comment See note 04/16/23 Cystic Fibrosis Screen Negative 10/16/22 Glucose 1 Hr 50 gm 96 mg/dL (85-140) 02/18/23 Gest Glucose Tolerance 96 mg/dL (70-139) 02/18/23 Hemoglobin A1c 5.4 % (4.0-6.0) 09/11/22 Ser , Semi-Qnt 02472.00 mIU/mL 09/26/22 HCG, Qual Positive (Negative) H 09/11/22 Urine Opiates Screen Negative ng/mL (Negative) 04/20/23 Ur Barbiturates Screen Negative ng/mL (Negative) 04/20/23 Ur Phencyclidine Scrn Negative ng/mL (Negative) 04/20/23 Ur Amphetamines Screen Negative ng/mL (Negative) 04/20/23 U Benzodiazepines Scrn Negative ng/mL (Negative) 04/20/23 Urine Cocaine Screen Negative ng/mL (Negative) 04/20/23 U Marijuana (THC) Screen Negative ng/mL (Negative) 04/20/23 Micro Urine Specimen 04/01/23 A&P Assessment and plan (1) 39 weeks gestation of : GBS negative (2) Spontaneous rupture of membranes: (3) Active labor at term: (4) Rh negative status during : Qualifiers: Trimester: third trimester Qualified Code(s): O26.893 - Other specified related conditions, third trimester; Z67.91 - Unspecified blood type, Rh negative (5) Supervision of other high-risk : (6) Opiate addiction: Qualifiers: Substance use status: uncomplicated Qualified Code(s): F11.20 - Opioid dependence, uncomplicated (7) Panic attack due to post traumatic stress disorder (PTSD): (8) Anxiety with depression: (9) PTSD (post-traumatic stress disorder): Plan Admitted to labor and delivery for management of labor. Attestations Medical Necessity Statement*: 37-year-old G4, P2 admitted to labor and delivery for management of labor at 39 weeks gestation with spontaneous rupture membranes. Coding Level of Care Code Acute Code for Chg Fwd Diagnoses 39 weeks gestation of Z3A.39 Spontaneous rupture of membranes Active labor at term Rh negative status during in third trimester O26.893; Z67.91 Trimester: third trimester Supervision of other high-risk O09.899 Uncomplicated opioid dependence F11.20 Substance use status: uncomplicated Panic attack due to post traumatic stress disorder (PTSD) F41.0; F43.10 Anxiety with depression F41.8 PTSD (post-traumatic stress disorder) F43.10
[2023-05-03 17:29] LABS: Amphetamines Screen Urine Negative (Negative); Barbiturates Screen Urine Negative (Negative); Benzodiazepines Screen Urine Negative (Negative); Cocaine Screen Urine Negative (Negative); Opiate Screen Urine Negative (Negative); PCP Screen Urine Negative (Negative); THC Screen Urine Negative (Negative)
[2023-05-03] MEDS: oxytocin 30 UNIT/500 ML BAG IV (18:06)
[2023-05-03] MEDS: ondansetron 2 mg/ML SDV 2 mL 4 MG IVP (18:07)
--- NOTE | 2023-05-03 18:44 | P.PCNOB_ITS ---
Delivery Note: Date of delivery: May 03, 2023 Pre-delivery diagnoses: 39 weeks gestation Spontaneous rupture membranes Post-delivery diagnoses: S/p viable female Procedure: with Pitocin augmentation Op report anesthesia: Epidural Delivering Physician: Elizabeth Frey DO Estimated blood loss (mL): 300 Findings: Viable female Apgars 9/9 weight 7 pounds 5 Post Delivery Diagnoses: Rh negative status during : Qualifiers: Trimester: third trimester Qualified Code(s): O26.893 - Other specified related conditions, third trimester; Z67.91 - Unspecified blood type, Rh negative Delivery: 37-year-old G4, P3 delivered via a v iable baby girl from OA presentation. The anterior followed by the posterior shoulders delivered with the remainder of the baby's body to follow. The oral and nasal pathways were bulb suctioned with a spontaneous robust cry. With delaying of clamping the cord, the cord was clamped x 2 and cut. The baby was then placed on mother's abdomen for bonding and evaluation by nursing staff. Three-vessel cord was noted. The uterus was massaged and Pitocin IV solution given in a bolus manner. The placenta presented in a Hawth[place] presentation with trailing membranes. The uterus firmed well with minimal bleeding. The uterus and vaginal vault were explored a second-degree laceration noted and repaired with 2-0 Vicryl. Good hemostasis and approximation achieved. Mother and are both in stable and satisfactory condition. Post-Delivery Status: Stable History History History 4 Term 2 0 Miscarriages/Ectopic 1 Living Children 2 A&P Assessment and plan (1) 39 weeks gestation of : (2) Status post vaginal delivery: (3) Active labor at term: (4) Spontaneous rupture of membranes: (5) Rh negative status during : Qualifiers: Trimester: third trimester Qualified Code(s): O26.893 - Other specified related conditions, third trimester; Z67.91 - Unspecified blood type, Rh negative (6) Supervision of other high-risk : (7) Panic attack due to post traumatic stress disorder (PTSD): (8) Anxiety with depression: (9) PTSD (post-traumatic stress disorder): Plan A. S/p Consultation for tubal sterilization Rh- blood type P. Begin care and resume home meds of methadone 120 mg daily Coding Level of Care Code Acute Code for Chg Fwd Diagnoses 39 weeks gestation of Z3A.39 Status post vaginal delivery Active labor at term Spontaneous rupture of membranes Rh negative status during in third trimester O26.893; Z67.91 Trimester: third trimester Supervision of other high-risk O09.899 Panic attack due to post traumatic stress disorder (PTSD) F41.0; F43.10 Anxiety with depression F41.8 PTSD (post-traumatic stress disorder) F43.10
[2023-05-03] MEDS: lanolin oint 7 gm 1 APPLIC TOPICAL (21:08)
[2023-05-03] MEDS: benzocaine-menthol 78 gm Canister 1 SPRAY TOPICAL (21:08)
[2023-05-03] MEDS: ibuprofen 800 mg tablet PO (21:08)
[2023-05-04] VITALS (7 sets, daily range): BP systolic 108–122; BP diastolic 54–65; PULSE 65–72; RESP 15–16; TEMP 36.6–37.2; O2SAT 96
--- NOTE | 2023-05-04 06:53 | P.PN_ITS ---
MEDICAL RECORD SPECIALIST Subjective 2 Subjective: Interval history: S/p viable female, patient doing well. Has been ambulating, voiding and caring for the infant with nursing assistance and breast-feeding. expectations reviewed, no heavy lifting pushing and pulling no sex douching or tampons x 6 weeks. Patient is to continue her home meds. She insist on taking her on methadone so that she does not have leftovers at home. Patient encouraged to continue her vitamins through the duration of her breast-feeding. Patient had plans on tubal sterilization but procedure consent was not found from the office, patient understands and will discuss at clinic during her post visit in hopes of being scheduled after 6 weeks. Medications: Medication Review Details: Patient tolerating methadone continuation with no complaints. Labor: Station: +2 Amniotic Membrane Status: Ruptured Monitor Mode: External Contraction Pattern: Regular Status: Category I Post /CS: [place] baby status: doing well [place] feeding status: e xclusively breast feeding Vitals/I&O/Wt Last Vital Signs Temp 98.2 F 05/04/23 02:00 Pulse 71 05/04/23 02:00 Resp 15 05/04/23 02:00 BP 110/54 05/04/23 02:00 Pulse Ox 96 05/04/23 02:00 O2 Del Method Room Air 05/04/23 02:00 05/03/23 05/03/23 05/04/23 14:59 22:59 06:59 Intake Total 330.75 / 330.75 Balance 330.75 / 330.75 Weight last 48 hrs Weight 75.75 kg Physical Exam 2 Narrative: Patient awake and alert, conversation appropriate. Back/Pelvis: OTHER: Abdomen?soft fundus firm below the umbilicus. Lochia light. Extremity: COMMON NORMALS: normal to inspection, no clubbing, cyanosis or edema and no calf tenderness Urinary Catheter Management: [place]: Cath Placed During This Visit: yes, but has since been removed by the nurse Reason for Continuing Indwelling Catheter: Decision to DC Catheter Urinary Catheter Date of Insertion: 05/03/23 Urinary Catheter Time of Insertion: 15:30 Date Urinary Catheter Removed: 05/03/23 Time Urinary Catheter Discontinued: 18:20 Data 05/03/23 13:40 A&P Assessment and plan (1) Anemia affecting in third trimester: (2) Status post vaginal delivery: A. Desires tubal sterilization after 6 weeks P. Will sign consent forms during visit. (2wks) (3) 39 weeks gestation of : (4) Rh negative status during : Qualifiers: Trimester: third trimester Qualified Code(s): O26.893 - Other specified related conditions, third trimester; Z67.91 - Unspecified blood type, Rh negative (5) Opiate addiction: Qualifiers: Substance use status: uncomplicated Qualified Code(s): F11.20 - Opioid dependence, uncomplicated (6) Panic attack due to post traumatic stress disorder (PTSD): (7) Anxiety with depression: (8) PTSD (post-traumatic stress disorder): Attestations 2 Medical Necessity Statement*: Patient was admitted for management of labor with spontaneous rupture membranes at 39 weeks gestation. Patient is now s/p and doing well . Probable discharge 05/05/23. Coding Level of Care Code Acute Code for Chg Fwd Diagnoses Anemia affecting in third trimester O99.013 Status post vaginal delivery 39 weeks gestation of Z3A.39 Rh negative status during in third trimester O26.893; Z67.91 Trimester: third trimester Uncomplicated opioid dependence F11.20 Substance use status: uncomplicated Panic attack due to post traumatic stress disorder (PTSD) F41.0; F43.10 Anxiety with depression F41.8 PTSD (post-traumatic stress disorder) F43.10
[2023-05-04 06:55] LABS: Hematocrit 26.7 % (36-47); Mean Corpuscular HGB Conc 30.7 g/dL (30-55); Mean Corpuscular Hemoglobin 23.2 pg (27-33); Mean Corpuscular Volume 75.4 fl (85-98); Mean Platelet Volume 9.3 fL (7.4-10.4); Platelet Count 198 10^3/cmm (157-399); Red Blood Count 3.54 10^6/uL (3.85-5.65); Red Cell Distribution Width 16.7 % (12.1-15.1); White Blood Count 12.85 10^3/uL (3.29-11.43)
[2023-05-04] MEDS: prenatal vitamin Capsule 1 CAP PO (10:28)
[2023-05-04] MEDS: docusate sodium 100 mg Capsule PO (10:29)
[2023-05-04] MEDS: ibuprofen 800 mg tablet PO ×2 (10:29→14:37)
--- NOTE | 2023-05-04 10:36 | ANE.PACU2 ---
Inpatient post-anesthesia follow up: Airway intact: Yes Vital signs: Temperature 98.9 F Pulse Rate 69 Respiratory Rate 16 Blood Pressure 122/58 Pulse Oximetry 96 Oxygen Delivery Me thod Room Air Oxygen Flow Rate Fraction of Inspir ed Oxygen Hydration adequate: Yes Nausea and vomiting: No Pain level: 2 Mental status: Baseline Additional Comments: Anes start 05/03/23 6419 Anes end 05/03/23 1227
[2023-05-05 04:00] VITALS: BP 125/77; PULSE 66; RESP 18; TEMP 36.4
--- NOTE | 2023-05-05 08:40 | PM.OBGYDC ---
Discharge Providers [employer] Date of Admission: 05/03/23 14:10 Date of Discharge: 05/05/23 Attending Provider at Admission: Elizabeth Frey DO Attending Provider at Discharge: Elizabeth Frey DO Primary Care Provider: Eulogio Lyles DO Diagnoses at Discharge Discharge Diagnosis (1) Status post vaginal delivery: Details from hospital stay: 36-year-old female s/p viable female stay uneventful. Patient is tolerating regular diet voiding ambulating and caring for without nursing assistance. expectations and discharge has been reviewed in great detail including no heavy lifting pushing or pulling no sex douching or tampons x 6 weeks. Patient is breast-feeding and encouraged to continue vitamins with increased fluids. We also discussed high-fiber diet and iron. Patient has been taking her methadone as prescribed and plans to continue. Patient will continue to Rhonda and with infant who has been observed longer because of possibilities of withdrawals. VSS, afebrile Exam?abdomen soft fundus firm at the umbilicus Lochia light Extremities?no edema negative Homans' sign Status: Acute (2) Anemia affecting in third trimester: Status: Acute (3) 39 weeks gestation of : Status: Acute (4) Rh negative status during : Status: Acute Qualifiers: Trimester: third trimester Qualified Code(s): O26.893 - Other specified related conditions, third trimester; Z67.91 - Unspecified blood type, Rh negative (5) Opiate addiction: Status: Acute Qualifiers: Substance use status: uncomplicated Qualified Code(s): F11.20 - Opioid dependence, uncomplicated Permanent problem details: 2016-- she goes to [facility]; currently on methadone (6) Panic attack due to post traumatic stress disorder (PTSD): Status: Acute (7) Anxiety with depression: Status: Acute (8) PTSD (post-traumatic stress disorder): Status: Acute Reason for Visit Reason for Visit: labor Hospital Course Hospital Course 37-year-old G4, P3 delivered via a viable female. Labor was uncomplicated and her stay is progressing well. Patient has history of opiate abuse and presently takes methadone. and discharge expectations have been reviewed and patient verbalizes understanding. Patient will be allowed to room in as baby is continued to be observed with risk of withdrawal. Patient is ambulating in hallway without difficulties she denies headaches blurred vision shortness of breath or chest pain. We have discussed anemia, and patient has been advised to continue her vitamins with a high-fiber diet and increase fluid hydration. VSS, afebrile Exam?unremarkable Information Peripartum Data: Delivery Method: Vaginal Physical Exam Narrative: Patient awake and alert, conversation appropriate. Back/Pelvis: OTHER: Abdomen?soft fundus firm below the umbilicus. Lochia light. Extremity: COMMON NORMALS: normal to inspection, no clubbing, cyanosis or edema and no calf tenderness Urinary Catheter Management: Arroyo: Cath Placed During This Visit: yes, but has since been removed by the nurse Reason for Continuing Indwelling Catheter: Decision to DC Catheter Urinary Catheter Date of Insertion: 05/03/23 Urinary Catheter Time of Insertion: 15:30 Date Urinary Catheter Removed: 05/03/23 Time Urinary Catheter Discontinued: 18:20 History History History 4 Term 2 0 Miscarriages/Ectopic 1 Living Children 2 Discharge Data Studies Completed and Pending Laboratory Results WBC 12.85 10^3/uL (3.29-11.43) H 05/04/23 06:37 RBC 3.54 10^6/uL (3.85-5.65) L 05/04/23 06:37 Hgb 8.20 g/dL (11.27-16.99) L 05/04/23 06:37 Hct 26.7 % (36-47) L 05/04/23 06:37 MCV 75.4 fl (85-98) L 05/04/23 06:37 MCH 23.2 pg (27-33) L 05/04/23 06:37 MCHC 30.7 g/dL (30-55) 05/04/23 06:37 RDW 16.7 % (12.1-15.1) H 05/04/23 06:37 Plt Count 198 10^3/cmm (157-399) 05/04/23 06:37 MPV 9.3 fL (7.4-10.4) 05/04/23 06:37 Neut % (Auto) 73.4 % 05/03/23 13:40 Lymph % (Auto) 15.9 % 05/03/23 13:40 [place] % (Auto) 8.1 % 05/03/23 13:40 Eos % (Auto) 1.2 % 05/03/23 13:40 Baso % (Auto) 0.5 % 05/03/23 13:40 Neut # (Auto) 7.83 10^3/uL (1.8-7.7) H 05/03/23 13:40 Lymph # (Auto) 1.7 10^3/uL (0.8-4.8) 05/03/23 13:40 [place] # (Auto) 0.9 10^3/uL (0.2-0.9) 05/03/23 13:40 Eos # (Auto) 0.1 10^3/uL (0.0-0.8) 05/03/23 13:40 Baso # (Auto) 0.1 10^3/uL (0.0-0.1) 05/03/23 13:40 Nucleated RBC % (auto) 0.3 % 05/03/23 13:40 Nucleated RBCs # 0.0 /100WBC 05/03/23 13:40 Urine Opiates Screen Negative ng/mL (Negative) 05/03/23 15:45 Ur Barbiturates Screen Negative ng/mL (Negative) 05/03/23 15:45 Ur Phencyclidine Scrn Negative ng/mL (Negative) 05/03/23 15:45 Ur Amphetamines Screen Negative ng/mL (Negative) 05/03/23 15:45 U Benzodiazepines Scrn Negative ng/mL (Negative) 05/03/23 15:45 Urine Cocaine Screen Negative ng/mL (Negative) 05/03/23 15:45 U Marijuana (THC) Screen Negative ng/mL (Negative) 05/03/23 15:45 Blood Type AB Negative 05/03/23 13:40 Rho(D) Type Negative 05/03/23 13:40 Antibody Screen Negative 05/03/23 13:40 Screen Negative (Negative) 05/04/23 06:37 Vitals Last Vital Signs Temp 97.5 F L 05/05/23 04:00 Pulse 66 05/05/23 04:00 Resp 18 05/05/23 04:00 BP 125/77 05/05/23 04:00 Pulse Ox 96 05/04/23 21:31 O2 Del Method Room Air 05/04/23 21:31 Results Labs OB ([facility]): Obstetrics US 02/26/23 Blood Type AB Negative 05/03/23 Antibody Screen Negative 05/03/23 Hct 26.7 % (36-47) L 05/04/23 Hgb 8.20 g/dL (11.27-16.99) L 05/04/23 Rho(D) Type Negative 05/03/23 Plt Count 198 10^3/cmm (157-399) 05/04/23 Hep Bs Antigen Non-reactive (Nonreactive) 10/16/22 Hepatitis C Antibody Non-reactive (Nonreactive) 10/16/22 Rubella IgG Antibody 32.0 IU/mL (0.0-10.0) H 10/16/22 RPR Nonreactive (Nonreactive) 10/16/22 HIV 1&2 Ab & HIV 1 Ag Non-reactive (Non-Reactiv) 10/16/22 TSH 1.37 uIU/mL (0.27-4.20) 09/11/22 C.trachomatis RNA (TMA) Not detected (NOT DETECTED) 04/16/23 N.gonorrhoeae RNA (TMA) Not detected (NOT DETECTED) 04/16/23 Chlamydia/GC Comment See note 04/16/23 Cystic Fibrosis Screen Negative 10/16/22 Glucose 1 Hr 50 gm 96 mg/dL (85-140) 02/18/23 Gest Glucose Tolerance 96 mg/dL (70-139) 02/18/23 Hemoglobin A1c 5.4 % (4.0-6.0) 09/11/22 Ser , Semi-Qnt 87220.00 mIU/mL 09/26/22 HCG, Qual Positive (Negative) H 09/11/22 Urine Opiates Screen Negative ng/mL (Negative) 05/03/23 Ur Barbiturates Screen Negative ng/mL (Negative) 05/03/23 Ur Phencyclidine Scrn Negative ng/mL (Negative) 05/03/23 Ur Amphetamines Screen Negative ng/mL (Negative) 05/03/23 U Benzodiazepines Scrn Negative ng/mL (Negative) 05/03/23 Urine Cocaine Screen Negative ng/mL (Negative) 05/03/23 U Marijuana (THC) Screen Negative ng/mL (Negative) 05/03/23 Micro Urine Specimen 04/01/23 Discharge Plan Discharge Patient Disposition: Home Condition: Stable Prescriptions: Continued methadone 40 mg tablet,soluble 120 mg PO DAILY prenat.vits,cheyenne,[id number] Tablet 1 tab PO DAILY Qty: 90 3RF famotidine [Pepcid] 40 mg tablet 40 mg PO BID Qty: 60 2RF Adult Robitussin Peak Cold M-S 5-10-100 mg/5 mL liquid 10 ml PO Q4H PRN (Reason: cold symptoms) Qty: 237 0RF ondansetron HCl 4 mg tablet 4 mg PO Q6H PRN (Reason: nausea and vomiting) Qty: 30 2RF azithromycin 250 mg tablet See Rx Instructions PO .COMPLEX Qty: 6 0RF Rx Instructions: For 250 mg dose pack: take 500 mg today (day 1), then 250 mg for 4 days (days 2-5) PO clotrimazole 1 % cream 1 appful vaginal .at bedtime 7 Days Qty: 45 0RF nitrofurantoin monohyd/m-cryst [Macrobid] 100 mg capsule 100 mg PO BID Qty: 14 0RF Rx Instructions: must administer with a meal/food Take twice daily for 7 days Discharge Orders: Discharge Order (Routine); Ordered 05/05/23 Ordered By: Elizabeth Frey Discharge Diet: Regular Discharge Activity: Increase activity as tolerated and Limit activity as instructed Patient Instructions: Depression (DC), Bleeding (DC), Preeclampsia and Eclampsia After Delivery (GEN), Hemorrhage (DC), OB Discharge Report, OB Food/Drug Interaction Guide, OB Care at Home, Opioid Safety, OB Home Care, OB Vaginal Deliveries - [facility] Activity Restrictions/Additional Instructions: Patient to avoid strenuous activity and sexual activity x 6 weeks. Assessment: S/p viable female Plan of Treatment: Discharge patient to home. Will allow room in a.m. until is discharged Discharge Attestations [employer]ACH[employer] Time Spent in Discharge Care*: less than 30 min Coding Level of Care Code Acute Code for Chg Fwd Diagnoses Status post vaginal delivery Anemia affecting in third trimester O99.013 39 weeks gestation of Z3A.39 Rh negative status during in third trimester O26.893; Z67.91 Trimester: third trimester Uncomplicated opioid dependence F11.20 Substance use status: uncomplicated Panic attack due to post traumatic stress disorder (PTSD) F41.0; F43.10 Anxiety with depression F41.8 PTSD (post-traumatic stress disorder) F43.10
[2023-05-05 10:00] VITALS: BP 130/87; PULSE 68; RESP 17; TEMP 36.7
[2023-05-05 17:53] VITALS: BP 119/73; PULSE 70; RESP 17; TEMP 36.7
[2023-05-05 17:56] VITALS: BP 119/73; PULSE 70; RESP 17; TEMP 36.7
[2023-05-05 19:35] VITALS: BP 117/65; PULSE 61; RESP 16; TEMP 36.7; O2SAT 96
== END 2023-05-05 19:36 | disposition home or self-care (01) | DRG 806 ==
LOC: OPOB 14:11 → OBGYN 14:11
PROVIDERS: Admitting Provider Obstetrics & Gynecology; PCP Family Medicine; Visit Provider Obstetrics & Gynecology
DX: O42.02 Full-term premature rupture of membranes, onset of labor within 24 hours of rupture (principal); F11.20 Opioid dependence, uncomplicated; Z37.0 Single live birth; O99.324 Drug use complicating childbirth; O71.4 Obstetric high vaginal laceration alone; O99.344 Other mental disorders complicating childbirth; F99 Mental disorder, not otherwise specified; Z3A.39 39 weeks gestation of pregnancy; F41.0 Panic disorder [episodic paroxysmal anxiety]; F43.10 Post-traumatic stress disorder, unspecified; F41.9 Anxiety disorder, unspecified; F32.A Depression, unspecified; Z67.91 Unspecified blood type, Rh negative
CPT/HCPCS: 36430; 51702; 59025; 59409; 80306; 83986; 85025; 85027; 85460; 86850; 86900; 90384; 96374; 98960; 99211; J2405; J2590; J2795; J3010; J3490; J7120; J7121

== ENCOUNTER 2024-02-21 08:22 | Emergency (ER) | payer OTHER, SELFPAY ==
[2024-02-21 08:46] VITALS: BP 155/90; PULSE 101; RESP 18; TEMP 36.9; O2SAT 96
--- NOTE | 2024-02-21 08:56 | W.ED.FEMALGU ---
HPI - Female Genitourinary General: Chief complaint: Urogenital-Female Stated complaint: vaginal issue Time Seen by Provider: 02/21/24 08:23 Source: patient Mode of arrival: ambulatory Limitations: no limitations History of Present Illness: 38-year-old female states she gave 10 months ago states she is lifting something heavy the day and felt like something came out vagina she states she looked at the mirror and noticed the slight prolapse not completely prolapse she denies any pain currently said some slight cramping denies any discharge or bleeding. Associated symptoms: Deny abdominal pain, headache(s) or nausea Related Data Home Medications Medication Instructions Recorded Confirmed methadone 40 mg soluble tablet 120 mg PO DAILY 09/11/22 11/04/23 Previous Rx's Medication Instructions Recorded prenat.vits,cheyenne,mhf-tdcu-jndud 1 tab PO DAILY #90 tabs 09/11/22 ondansetron HCl 4 mg tablet 4 mg PO Q6H PRN nausea and 10/16/22 vomiting #30 tabs famotidine 40 mg tablet (Pepcid) 40 mg PO BID #60 tabs 02/18/23 [id number]-[id number] 5 10 ml PO Q4H PRN cold symptoms 03/04/23 mg-10 mg-100 mg/5 mL oral liquid #237 mL (Adult Robitussin Peak Cold M-S) clotrimazole 1 % vaginal cream 1 appful vaginal .at bedtime 7 04/21/23 days #45 grams methylprednisolone 4 mg tablets in See Rx Instructions PO PER PKG DIR 06/17/23 a dose pack (Medrol (Aram)) #21 ea Allergies Allergy/AdvReac Type Severity Reaction Status Date / Time cefaclor [From Ceclor] Allergy unknown Verified 11/04/23 11:08 Penicillins Allergy unknown Verified 11/04/23 11:08 Sulfa (Sulfonamide Allergy unknown Verified 11/04/23 11:08 Antibiotics) prochlorperazine AdvReac Intermediate ADR-Anxiety Verified 11/04/23 11:08 [From Compazine] Review of Systems Const: Denies: fever(s) or chills ENMT: Denies: throat pain or dental pain Card: Denies: chest pain Resp: Denies: dyspnea GI: Denies: abdominal pain, nausea, vomiting or diarrhea : Denies: dysuria Musc: Denies: neck pain or back pain Skin/Breast: Denies: rash Neuro: Denies: headache(s) Psych: Reports: depression PFSH ED PFSH: Medical History Panic attack due to post traumatic stress disorder (PTSD) Anxiety with depression PTSD (post-traumatic stress disorder) History of gestational diabetes (~2010) diet controlled No pertinent past medical history neghx: htn,dm,thyroid,dvt/pe PCP: None Surgical History H/O laparoscopy (~2006) Performed by Dr. Carbajal for endometriosis --- self reported but told spots were treated H/O dilation and curettage (~2008) missed AB Family History Mother Cervical cancer Hyperlipidemia Hypertension Sister Cervical cancer Grandmother Hyperlipidemia Hypertension maternal Diabetes maternal Stroke maternal Other Lung disease Denies family history of Colon cancer Ovarian cancer Breast cancer Uterine cancer Thyroid disease Physical Exam Const: COMMON NORMALS: patient oriented x3 HENMT: COMMON NORMALS: normocephalic and atraumatic HEAD & SCALP: normocephalic and atraumatic Neck/C-Spine: COMMON NORMALS: full ROM Chest: COMMONS NORMALS: normal inspection of the chest Resp: COMMON NORMALS: normal respiratory effort Cardio: COMMON NORMALS: regular rate RATE: regular rate GI: COMMON NORMALS: Normal to inspection, nondistended, normoactive bowel sounds present, Soft to palpation, non-tender and no masses PALPATION: Yes Soft to palpation : OTHER: Slight vaginal prolapse no complete prolapse no bleeding or discharge Extremity: COMMON NORMALS: normal to inspection and full ROM Neuro: COMMON NORMALS: patient oriented x3, moves all extremities and no focal motor deficits Psych: COMMON NORMALS: mental status grossly normal, Normal thought process present and cooperative THOUGHT PROCESS: Normal thought process present Skin: COMMON NORMALS: no rashes or lesions noted and no wounds GENERAL SKIN EXAM: no rashes or lesions noted Course Vital Signs: Vital signs: Vital Signs Temperature 98.4 F 02/21/24 08:46 Pulse Rate 101 H 02/21/24 08:46 Respiratory Rate 18 02/21/24 08:46 Blood Pressure 155/90 02/21/24 08:46 Pulse Oximetry 96 10/20/24 08:46 MDM - Female Medical Decision Making Patient presents with vaginal prolapse she is well-appearing here we will get her follow-up with OB she is to return if worsening Medical Records I reviewed the patient's medical records. No radiology studies performed this visit Discharge Plan Discharge Patient Disposition: Home Clinical Impression: Vaginal prolapse Condition: Stable Prescriptions: No Action methadone 40 mg tablet,soluble 120 mg PO DAILY prenat.vits,cheyenne,qaz-wped-uilki Tablet 1 tab PO DAILY Qty: 90 3RF famotidine [Pepcid] 40 mg tablet 40 mg PO BID Qty: 60 2RF Adult Robitussin Peak Cold M-S 5-10-100 mg/5 mL liquid 10 ml PO Q4H PRN (Reason: cold symptoms) Qty: 237 0RF methylprednisolone [Medrol (Aram)] 4 mg tablets,dose pack See Rx Instructions PO PER PKG DIR Qty: 21 0RF Rx Instructions: PO PER PKG DIR ondansetron HCl 4 mg tablet 4 mg PO Q6H PRN (Reason: nausea and vomiting) Qty: 30 2RF clotrimazole 1 % cream 1 appful vaginal .at bedtime 7 Days Qty: 45 0RF Discharge Orders: Discharge ED (Routine); Ordered 02/21/24 Ordered By: Anca Jiang Referrals: Jose Alfredo Acosta MD [Physician] - 1-3 days Eulogio Lyles DO [Primary Care Provider] - Discharge Diet: Advance as tolerated Discharge Activity: Resume usual activity Patient Instructions: Uterine Prolapse (ED) Coding Level of Care Code 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
[2024-02-21 09:19] VITALS: BP 122/68; PULSE 92; RESP 20; O2SAT 97
--- NOTE | 2024-02-22 07:48 | DCPLANNER ---
messaged [facility] for er f/u
== END 2024-02-21 09:21 | disposition home or self-care (01) ==
PROVIDERS: Emergency Provider Emergency Medicine; PCP Family Medicine
DX: N81.10 Cystocele, unspecified (principal)
CPT/HCPCS: 99281

== ENCOUNTER → 2024-02-29 08:41 | Outpatient (BNVA) | payer OTHER, SELFPAY | PROVIDERS: PCP Family Medicine; Visit Provider Obstetrics & Gynecology | DX: Z12.4 Encounter for screening for malignant neoplasm of cervix (principal) | CPT/HCPCS: 87624 ==